=== PATIENT | male | born 1960 | race Caucasian/White ===

== ENCOUNTER 2018-07-31 05:33 | Emergency (ER) | payer BC ==
[~2018-07-31] VITALS: Ht 182.8 cm; Wt 111.1 kg
[~2018-07-31 05:33] MED LIST: AMBIEN10 M1 PO; ASTEPRO205.5 MCG/ NS; BACTROBAN CREAM15 GM PO; CLEOCIN150 MG PO; HYDROCODONE BIT1 T11 PO; NASONEX0.05 MG/AC NAS; PERCOCET 325 MG1 TA7 PO; TERAZOSIN HCL1 M1 PO
[2018-07-31] MEDS ORDERED: NAPROSYN500 MG PO (06:36)
[2018-07-31] MEDS ORDERED: PREDNISONE50 MG PO (06:36)
== END 2018-07-31 07:47 | disposition home or self-care (01) ==
LOC: ED 05:33
DX: M54.5 Low back pain (principal); F10.10 Alcohol abuse, uncomplicated

== ENCOUNTER → 2020-10-29 | Outpatient (CLI) | payer OTHER ==
[~2020-10-29] MED LIST changes: +NAPROSYN500 MG PO; +PREDNISONE50 MG PO
== END | disposition home or self-care (01) ==
LOC: COVID19 16:22
PROVIDERS: ATTEND Student in an Organized Health Care Education/Training Program
DX: U07.1 COVID-19 (principal)

== ENCOUNTER 2021-04-24 22:17 | Emergency (ER) | payer OTHER, BC ==
[~2021-04-24] VITALS: Ht 182.8 cm; Wt 115.7 kg
== END 2021-04-25 01:31 | disposition home or self-care (01) ==
LOC: ED 22:17
DX: G43.909 Migraine, unspecified, not intractable, without status migrainosus (principal); Z79.899 Other long term (current) drug therapy

== ENCOUNTER → 2023-03-31 | Day surgery (SDC) | payer OTHER ==
[2023-03-28 14:33] VITALS: BP 145/96
[2023-03-28 15:32] LABS: BASO % 0.3 % (0.0-1.0); EOS % 0.1 % (1.0-4.0); HEMATOCRIT 46.2 % (42.0-52.0); LYMPH # 1.7 10*3/uL (1.3-4.4); LYMPH % 14.3 % (27.0-41.0); MEAN CELL VOLUME 89.5 fl (80.0-94.0); MEAN CORPUSCULAR HGB 30.2 pg (27.0-31.0); MEAN CORPUSCULAR HGB CONC 33.8 g/dl (33.0-37.0); MEAN PLATELET VOLUME 9.5 fl (9.6-12.3); MONO # 0.8 10*3/uL (0.1-1.0); MONO % 6.6 % (3.0-9.0); NEUT # 9.2 10*3/uL (2.3-7.9); PLATELET COUNT AUTOMATED 350 10*3/uL (130-400); RED BLOOD COUNT 5.16 10*6/uL (4.50-5.90); RED CELL DISTRI WIDTH 12.4 % (0-14.5); WHITE BLOOD COUNT 11.7 10*3/uL (4.8-10.8)
[2023-03-28 15:50] LABS: BUN 13 mg/dl (9-23); CHLORIDE 104 mmol/L (98-107); POTASSIUM 4.5 mmol/L (3.4-5.1)
[~2023-03-31] VITALS: Ht 182.8 cm; Wt 117.9 kg
[2023-03-31 10:46] VITALS: BP 143/98
[2023-03-31 12:58] VITALS: BP 151/79
[2023-03-31 13:13] VITALS: BP 140/88
[2023-03-31 13:28] VITALS: BP 134/90
[2023-03-31 13:43] VITALS: BP 132/78
[2023-03-31 13:58] VITALS: BP 141/90
[2023-04-02 09:07] LABS: ACID FAST SPEC PROCESSING Tissue Grinding (.)
== END ==
LOC: SDC 03-28 13:30
PROVIDERS: ATTEND Specialist
DX: R59.1 Generalized enlarged lymph nodes (principal); J39.2 Other diseases of pharynx

== ENCOUNTER 2024-08-02 19:16 | Emergency (ER) | payer OTHER ==
[~2024-08-02] VITALS: Ht 182.8 cm; Wt 122.5 kg
[2024-08-02 20:40] LABS: BASO # 0.1 10*3/uL (0.0-0.1); BASO % 0.7 % (0.0-1.0); EOS # 0.2 10*3/uL (0.0-0.4); HEMATOCRIT 42.8 % (42.0-52.0); LYMPH % 8.7 % (27.0-41.0); MEAN CELL VOLUME 89.9 fl (80.0-94.0); MEAN CORPUSCULAR HGB CONC 33.4 g/dl (33.0-37.0); MEAN PLATELET VOLUME 9.7 fl (9.6-12.3); MONO # 1.2 10*3/uL (0.1-1.0); MONO % 10.6 % (3.0-9.0); NEUT # 8.5 10*3/uL (2.3-7.9); NEUT % 77.4 % (47.0-73.0); PLATELET COUNT AUTOMATED 332 10*3/uL (130-400); RED BLOOD COUNT 4.76 10*6/uL (4.50-5.90)
[2024-08-02 21:05] LABS: ALKALINE PHOSPHATASE 65 U/L (46-116); BUN 14 mg/dl (9-23); CHLORIDE 103 mmol/L (98-107); POTASSIUM 4.2 mmol/L (3.4-5.1); SGPT/ALT 23 U/L (5-49); TOTAL PROTEIN 7.7 gm/dL (6.0-8.0)
== END 2024-08-02 22:04 | disposition home or self-care (01) ==
LOC: ED 19:16
PROVIDERS: Internal Medicine
DX: B34.9 Viral infection, unspecified (principal); Z90.89 Acquired absence of other organs; Z98.890 Other specified postprocedural states; Z87.442 Personal history of urinary calculi